=== PATIENT | female | born 1970 | race Caucasian/White ===

== ENCOUNTER 2021-12-12 14:22 | Emergency (ER) | payer MEDICARE, MEDICAID ==
[~2021-12-12] VITALS: Ht 154.9 cm; Wt 72.2 kg
[~2021-12-12 14:22] MED LIST: ASPI-1071 PO; GABA-530 PO; IBUP-1984 PO; LORA0.5T PO; SERT50TA PO; SIMV10TA98 PO; TOPI25TA15 PO; TRAZ-251 PO
[2021-12-12 14:39] VITALS: BP 125/74
[2021-12-12] MEDS ORDERED: ondansetron 4mg rapidly disintigrating tab PO ONE (15:00)
[2021-12-12] MEDS ORDERED: HYDROcodone/acetaminophen 5mg/325mg tablet PO ONE (15:00)
[2021-12-12] MEDS ORDERED: LORazepam 1 MG tablet PO ONE (15:00)
[2021-12-12] MEDS ORDERED: HYDR-3965 PO (16:04)
[2021-12-12] MEDS ORDERED: ONDA4TAB12 PO (16:04)
== END 2021-12-12 16:33 | disposition home or self-care (01) ==
LOC: ER 14:22
DX: M25.571 Pain in right ankle and joints of right foot (principal); I11.0 Hypertensive heart disease with heart failure; I50.9 Heart failure, unspecified; G89.29 Other chronic pain; F41.9 Anxiety disorder, unspecified; F31.9 Bipolar disorder, unspecified; F19.90 Other psychoactive substance use, unspecified, uncomplicated; Z72.89 Other problems related to lifestyle; Z88.1 Allergy status to other antibiotic agents; Z88.8 Allergy status to other drugs, medicaments and biological substances; Z79.82 Long term (current) use of aspirin; Z79.899 Other long term (current) drug therapy
CPT/HCPCS: 73564; 73610; 99284

== ENCOUNTER 2023-02-05 10:19 | Emergency (ER) | payer MEDICARE, MEDICAID ==
[~2023-02-05] VITALS: Ht 154.9 cm; Wt 61.8 kg
[~2023-02-05 10:19] MED LIST changes: +ONDA4TAB12 PO
[2023-02-05 10:40] LABS: BASOPHILS % (AUTO) 0.5 % (0-1); EOSINOPHILS # (AUTO) 0.1 X10'3 (0-0.9); EOSINOPHILS % (AUTO) 1.5 % (0-6); HEMATOCRIT 34.5 % (35.0-45.0); HEMOGLOBIN 11.1 g/dl (12.0-16.0); LYMPHOCYTES # (AUTO) 0.9 X10'3 (1.1-4.8); LYMPHOCYTES % (AUTO) 13.1 % (21-51); MEAN CORPUSCULAR HEMOGLOBIN 31.8 PG (27.0-31.0); MEAN CORPUSCULAR HGB CONC 32.2 g/dL (33.0-36.5); MEAN CORPUSCULAR VOLUME 98.8 FL (78-98); MEAN PLATELET VOLUME 9.3 FL (7.4-10.4); MONOCYTES # (AUTO) 0.6 X10'3 (0-0.9); MONOCYTES % (AUTO) 7.8 % (2-12); NEUTROPHILS # (AUTO) 5.5 X10'3 (1.8-7.7); NEUTROPHILS % (AUTO) 77.1 % (42-75); PLATELET COUNT 224 X10'3 (140-440); RED BLOOD COUNT 3.49 X10'6 (4.20-5.60); RED CELL DISTRIBUTION WIDTH 15.7 % (11.5-14.5); WHITE BLOOD COUNT 7.1 X10'3 (4.5-11.0)
[2023-02-05 10:51] VITALS: BP 93/61; PULSE 100; RESP 18; TEMP 98.4; O2SAT 97
[2023-02-05 10:57] LABS: ALANINE AMINOTRANSFERASE 48 U/L (12-78); ALBUMIN 2.8 G/DL (3.4-5.0); ALKALINE PHOSPHATASE 94 IU/L (46-116); ANION GAP 10 (8-16); ASPARTATE AMINO TRANSFERASE 32 U/L (10-37); BILIRUBIN,TOTAL 0.2 MG/DL (0.1-1.0); BLOOD UREA NITROGEN 22 MG/DL (7-18); BUN/CREATININE RATIO 28.9 (10.0-20.0); CALCIUM 8.6 MG/DL (8.5-10.1); CHLORIDE 104 MMOL/L (99-107); CREATININE 0.76 MG/DL (0.40-0.90); GLUCOSE 95 MG/DL (70-104); POTASSIUM 3.3 MMOL/L (3.5-5.1); SODIUM 139 MMOL/L (135-145); TOTAL CARBON DIOXIDE 24.6 MMOL/L (24-32); TOTAL PROTEIN 5.5 G/DL (6.4-8.2); eGFR 79 ML/MIN
[2023-02-05] MEDS ORDERED: POTASSIUM BICARB 20meq eff tab 20 MEQ TABLET.EFF PO STA (12:57)
[2023-02-05] MEDS ORDERED: furosemide 20 MG/2 ML vial IV ONE (13:00)
[2023-02-05] MEDS ORDERED: HYDROcodone/acetaminophen 10/325mg tab PO ONE (13:00)
[2023-02-05 13:22] LABS: MAGNESIUM 1.9 MG/DL (1.5-2.4)
== END 2023-02-05 15:13 | disposition left against medical advice (07) ==
LOC: ER 10:20
DX: J44.9 Chronic obstructive pulmonary disease, unspecified (principal); R60.9 Edema, unspecified; I50.33 Acute on chronic diastolic (congestive) heart failure; E78.00 Pure hypercholesterolemia, unspecified; I11.0 Hypertensive heart disease with heart failure; G89.29 Other chronic pain; M79.7 Fibromyalgia; F17.210 Nicotine dependence, cigarettes, uncomplicated; Z88.8 Allergy status to other drugs, medicaments and biological substances; Z88.1 Allergy status to other antibiotic agents; Z79.82 Long term (current) use of aspirin; Z79.899 Other long term (current) drug therapy
CPT/HCPCS: 36415; 71045; 80053; 83735; 83880; 84484; 85025; 93005; 99285

== ENCOUNTER 2023-03-23 00:13 | Inpatient (IN) | payer MEDICARE, MEDICAID ==
[~2023-03-23] VITALS: Ht 154.9 cm; Wt 88.2 kg
[~2023-03-23 00:13] MED LIST changes: -ASPI-1071 PO; +ASPI81TA52 PO; +CARI1.5C PO; +CHLO10TA18 PO; +CYCL-1 PO; +DICL100G59 TOP; +ERGO500093 PO; +FURO40TA4 PO; -GABA-530 PO; +GABA600T13 PO; -IBUP-1984 PO; +LISI5TAB22 PO; -LORA0.5T PO; +NAPR-996 PO; -ONDA4TAB12 PO; +SERT-433 PO; -SERT50TA PO; -SIMV10TA98 PO; +TOP100T PO; -TOPI25TA15 PO; -TRAZ-251 PO
[2023-03-23] MEDS ORDERED: furosemide 40mg/4ml inj IV ONE ×2 (01:20→19:45)
[2023-03-23] MEDS ORDERED: ondansetron/PF 4mg/2ml inj IV ONE (01:25)
[2023-03-23] MEDS ORDERED: morphine 4 MG/ML inj SYRINge IV ONE (01:25)
[2023-03-23 02:02] LABS: BASOPHILS # (AUTO) 0.1 X10'3 (0-0.2); BASOPHILS % (AUTO) 0.8 % (0-1); EOSINOPHILS # (AUTO) 0.2 X10'3 (0-0.9); EOSINOPHILS % (AUTO) 2.5 % (0-6); HEMATOCRIT 32.9 % (35.0-45.0); HEMOGLOBIN 10.6 g/dl (12.0-16.0); LYMPHOCYTES # (AUTO) 1.2 X10'3 (1.1-4.8); LYMPHOCYTES % (AUTO) 15.7 % (21-51); MEAN CORPUSCULAR HEMOGLOBIN 30.3 PG (27.0-31.0); MEAN CORPUSCULAR HGB CONC 32.2 g/dL (33.0-36.5); MEAN CORPUSCULAR VOLUME 93.9 FL (78-98); MEAN PLATELET VOLUME 8.1 FL (7.4-10.4); MONOCYTES # (AUTO) 1.1 X10'3 (0-0.9); MONOCYTES % (AUTO) 14.1 % (2-12); NEUTROPHILS # (AUTO) 5.2 X10'3 (1.8-7.7); NEUTROPHILS % (AUTO) 66.9 % (42-75); PLATELET COUNT 323 X10'3 (140-440); RED CELL DISTRIBUTION WIDTH 17.5 % (11.5-14.5); WHITE BLOOD COUNT 7.8 X10'3 (4.5-11.0)
[2023-03-23 02:18] LABS: ALANINE AMINOTRANSFERASE 140 U/L (12-78); ALBUMIN 3.1 G/DL (3.4-5.0); ALKALINE PHOSPHATASE 126 IU/L (46-116); ANION GAP 7 (8-16); ASPARTATE AMINO TRANSFERASE 84 U/L (10-37); BILIRUBIN,TOTAL 0.5 MG/DL (0.1-1.0); BLOOD UREA NITROGEN 25 MG/DL (7-18); BUN/CREATININE RATIO 26.6 (10.0-20.0); CALCIUM 8.8 MG/DL (8.5-10.1); CHLORIDE 101 MMOL/L (99-107); CREATININE 0.94 MG/DL (0.40-0.90); GLUCOSE 95 MG/DL (70-104); POTASSIUM 4.5 MMOL/L (3.5-5.1); SODIUM 133 MMOL/L (135-145); TOTAL CARBON DIOXIDE 24.7 MMOL/L (24-32); TOTAL PROTEIN 6.2 G/DL (6.4-8.2); eCRCL 51 ML/MIN; eGFR 62 ML/MIN
[2023-03-23 02:27] LABS: PRO BRAIN NATRIURETIC PEPTIDE 5317 PG/ML (0-125)
[2023-03-23] MEDS ORDERED: iohexol 350MG/ML 100ml bottle IV ONE (03:16)
[2023-03-23] MEDS ORDERED: normal saline 1000ml 1,000 ML IV ONE (04:35)
[2023-03-23] MEDS ORDERED: ondansetron 4mg rapidly disintigrating tab PO PRN (05:05)
[2023-03-23] MEDS ORDERED: bisacodyl 10mg suppository rectal RC PRN (05:05)
[2023-03-23] MEDS ORDERED: acetaminophen 325mg tablet PO PRN ×2 (05:05)
[2023-03-23] MEDS ORDERED: morphine 2 MG/ML inj. syringe IV PRN (05:05)
[2023-03-23] MEDS ORDERED: ondansetron/PF 4mg/2ml inj IV PRN (05:05)
[2023-03-23] MEDS ORDERED: magnesium hydroxide 30ml (MOM) UD suspension PO PRN (05:05)
[2023-03-23] MEDS ORDERED: mag hydrox/Alum hydrox/simeth 30ml oral suspension PO PRN (05:05)
[2023-03-23] MEDS ORDERED: diphenhydrAMINE 50 mg/ml inj IV PRN (05:05)
[2023-03-23] MEDS ORDERED: acetaminophen 650mg rectal suppository RC PRN (05:05)
[2023-03-23] MEDS ORDERED: diphenhydrAMINE 25mg capsule PO PRN (05:05)
[2023-03-23] MEDS ORDERED: pantoprazole 40mg Tablet.DR PO SCH (07:30)
[2023-03-23] MEDS ORDERED: furosemide 10 MG/1 ML 10ml inj IV SCH (08:00)
--- NOTE | 2023-03-23 08:05 | NUR ---
Pt has a BP of 99/62. Lasix 40 mg is due at 0800. Order states to hold if SBP is <100. 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
--- NOTE | 2023-03-23 08:16 | NUR ---
Been on hold waiting for [employer] to take report to transfer to the floor.
[2023-03-23] MEDS: nicotine 21mg patch - 24 hr TD SCH (08:30)
[2023-03-23] MEDS: docusate sod 100mg capsule PO SCH ×2 (08:30→20:00)
[2023-03-23] MEDS: pantoprazole 40mg Tablet.DR PO SCH (08:31)
[2023-03-23] MEDS: heparin, porcine 5000 units/ml vial SQ SCH ×2 (08:32→20:42)
[2023-03-23 08:46] LABS: MAGNESIUM 2.3 MG/DL (1.5-2.4); PHOSPHORUS 4.9 MG/DL (2.3-4.5)
[2023-03-23 09:13] LABS: APTT 32 SECONDS (22-32); D-DIMER 1.84 MG/L FEU (0-0.50); INR 1.1 INR; PROTHROMBIN TIME 11.8 SECONDS (9.0-12.0)
[2023-03-23 10:41] VITALS: RESP 20; O2SAT 96
[2023-03-23 11:00] VITALS: BP 85/65; PULSE 85; RESP 20; TEMP 98.4; O2SAT 99
[2023-03-23 15:00] VITALS: BP 110/65; PULSE 102; RESP 23; TEMP 97.6; O2SAT 99
--- NOTE | 2023-03-23 15:32 | NUR ---
BLADDER SCANNED PT PER PT REQUEST. 115MLS WAS THE HIGHEST NUMBER SCANNED. ASKED ABOUT LAST VOID, PT REPORTED IT HAD BEEN "HOURS". PT ASKED TO CONTACT THIS NURSE AFTER NEXT VOID FOR MORE ACCURATE RESULTS.
[2023-03-23] MEDS: HYDROcodone/acetaminophen 5mg/325mg tablet PO PRN ×2 (16:20→22:48)
--- NOTE | 2023-03-23 18:23 | NUR ---
Patient in room PCU 3028. I have received report from SAMARA BLANCO, and had the opportunity to ask questions and assume patient care.
--- NOTE | 2023-03-23 18:30 | NUR ---
Patient in room PCU 3028. I have received report from SCOTT and had the opportunity to ask questions and assume patient care.
[2023-03-23 19:00] VITALS: BP 98/56; PULSE 95; RESP 16; TEMP 98.4; O2SAT 97
--- NOTE | 2023-03-23 19:15 | NUR ---
PT HAS PROLAPSED RECTUM THAT WILL COME OUT WHEN SHE VOIDS. IT REDUCES ITSELF WHEN SHE SITS DOWN. PT REFUSING TO HAVE NURSING ASSESS PROLAPSED RECTUM
[2023-03-23] MEDS ORDERED: albumin (Human) 5% 250ml 250 ML IV ONE (19:45)
--- NOTE | 2023-03-23 19:45 | NUR ---
DR CHANDLER NOTIFIED: PT DID NOT RECEIVE ANY LASIX TODAY DUE TO DECREASED BP. PT ADMITTED FOR CHF, BP 98/56. ORDERS OBTAINED TO GIVE ALBUMIN X 1 AND IF BP GREATER THAN 100/50, OK TO GIVE LASIX X 1 TONIGHT.
[2023-03-23 20:02] LABS: URINE AMPHETAMINE SCREEN NEGATIVE (Neg); URINE BARBITUATE SCREEN NEGATIVE (Neg); URINE BENZODIAZEPINES SCREEN NEGATIVE (Neg); URINE CANNABINOID SCREEN POSITIVE (Neg); URINE COCAINE SCREEN NEGATIVE (Neg); URINE METHADONE SCREEN NEGATIVE (Neg); URINE OPIATE SCREEN POSITIVE (Neg); URINE PHENCYCLIDINE SCREEN NEGATIVE (Neg)
[2023-03-23] MEDS ORDERED: ACYC-129 PO (20:40)
[2023-03-23] MEDS ORDERED: cyclobenzaprine 10mg tablet PO PRN (20:55)
[2023-03-23 20:59] VITALS: BP 112/76
[2023-03-23] MEDS ORDERED: temazepam 15mg capsule PO PRN (21:00)
[2023-03-23] MEDS ORDERED: CHLORPROMAZINE 10 MG PO PRN (21:21)
[2023-03-23] MEDS: gabapentin 300mg capsule PO SCH (22:42)
[2023-03-23] MEDS ORDERED: CARIPRAZINE 1.5 MG CAPSULE PO SCH (22:54)
--- NOTE | 2023-03-23 23:00 | NUR ---
FOUND PT NAKED AND CRYING IN THE BATHROOM . C/O PAIN IN RECTUM AND INABILITY TO VOID. PT ASSISTED BACK INTO BED, BLADDER SCAN REVEALED GREATER THAN 550 ML IN HER BLADDER. DR CHANDLER NOTIFIED OF ABOVE, ORDERS OBTAINED TO PLACE FC.
[2023-03-24 00:30] VITALS: BP 97/59; PULSE 71; RESP 18; TEMP 98.6; O2SAT 91
--- NOTE | 2023-03-24 06:24 | NUR ---
Problems reprioritized. Patient report given, questions answered & plan of care reviewed with SARAH.
--- NOTE | 2023-03-24 06:30 | NUR ---
Patient in room PCU 3028. I have received report from Rita PASCUAL and had the opportunity to ask questions and assume patient care.
[2023-03-24 07:00] VITALS: BP 86/58; PULSE 87; RESP 14; TEMP 97.6; O2SAT 97
[2023-03-24 07:03] LABS: BASOPHILS % (AUTO) 0.7 % (0-1); EOSINOPHILS # (AUTO) 0.3 X10'3 (0-0.9); EOSINOPHILS % (AUTO) 5.1 % (0-6); HEMATOCRIT 28.9 % (35.0-45.0); HEMOGLOBIN 9.2 g/dl (12.0-16.0); LYMPHOCYTES % (AUTO) 15.7 % (21-51); MEAN CORPUSCULAR HEMOGLOBIN 29.9 PG (27.0-31.0); MEAN CORPUSCULAR HGB CONC 31.9 g/dL (33.0-36.5); MEAN CORPUSCULAR VOLUME 93.8 FL (78-98); MONOCYTES # (AUTO) 0.6 X10'3 (0-0.9); MONOCYTES % (AUTO) 9.4 % (2-12); NEUTROPHILS # (AUTO) 4.5 X10'3 (1.8-7.7); NEUTROPHILS % (AUTO) 69.1 % (42-75); PLATELET COUNT 250 X10'3 (140-440); RED BLOOD COUNT 3.08 X10'6 (4.20-5.60); RED CELL DISTRIBUTION WIDTH 17.6 % (11.5-14.5); WHITE BLOOD COUNT 6.6 X10'3 (4.5-11.0)
[2023-03-24 07:33] LABS: ALANINE AMINOTRANSFERASE 96 U/L (12-78); ALBUMIN 2.7 G/DL (3.4-5.0); ALKALINE PHOSPHATASE 91 IU/L (46-116); ANION GAP 9 (8-16); ASPARTATE AMINO TRANSFERASE 57 U/L (10-37); BILIRUBIN,TOTAL 0.5 MG/DL (0.1-1.0); BLOOD UREA NITROGEN 20 MG/DL (7-18); CALCIUM 8.3 MG/DL (8.5-10.1); CHLORIDE 104 MMOL/L (99-107); CREATININE 0.87 MG/DL (0.40-0.90); GLUCOSE 105 MG/DL (70-104); POTASSIUM 3.5 MMOL/L (3.5-5.1); PRO BRAIN NATRIURETIC PEPTIDE 3830 PG/ML (0-125); SODIUM 137 MMOL/L (135-145); TOTAL CARBON DIOXIDE 24.3 MMOL/L (24-32); TOTAL PROTEIN 5.4 G/DL (6.4-8.2); eCRCL 55 ML/MIN; eGFR 68 ML/MIN
[2023-03-24] MEDS ORDERED: furosemide 40mg/4ml inj IV SCH (08:00)
[2023-03-24] MEDS ORDERED: aspirin 81mg, enteric-coated 1 TAB TABLET.DR PO SCH (08:00)
[2023-03-24] MEDS ORDERED: topiramate 100mg tablet PO SCH (08:00)
[2023-03-24] MEDS ORDERED: sertraline 50mg tablet PO SCH (08:00)
[2023-03-24] MEDS ORDERED: furosemide 10 MG/1 ML 10ml inj IV SCH (08:00)
[2023-03-24] MEDS: docusate sod 100mg capsule PO SCH (08:10)
[2023-03-24] MEDS: gabapentin 300mg capsule PO SCH ×2 (08:10→14:05)
[2023-03-24] MEDS: pantoprazole 40mg Tablet.DR PO SCH (08:10)
[2023-03-24] MEDS: nicotine 21mg patch - 24 hr TD SCH (08:11)
[2023-03-24] MEDS: heparin, porcine 5000 units/ml vial SQ SCH (08:11)
[2023-03-24] MEDS ORDERED: NICO-687 TD (12:10)
[2023-03-24 12:20] VITALS: BP 87/60; PULSE 96; RESP 17; TEMP 97.5; O2SAT 98
--- NOTE | 2023-03-24 14:22 | NUR ---
AGREE WITH [employer] HELPER AM ASSESSMENT
[2023-03-24 15:08] VITALS: RESP 19
[2023-03-24] MEDS: HYDROcodone/acetaminophen 5mg/325mg tablet PO PRN (15:08)
== END 2023-03-24 16:42 | disposition home or self-care (01) | DRG 291 ==
LOC: ER 00:14 → ED HOLD 05:05 → PCU 3S 08:51
PROVIDERS: ADMIT Family Medicine; ATTEND Internal Medicine
PROC: B32T1ZZ Computerized Tomography (CT Scan) of Left Pulmonary Artery using Low Osmolar Contrast (ICD-10-PCS; principal; 2023-03-23)
PROC: B3201ZZ Computerized Tomography (CT Scan) of Thoracic Aorta using Low Osmolar Contrast (ICD-10-PCS; 2023-03-23)
PROC: B32S1ZZ Computerized Tomography (CT Scan) of Right Pulmonary Artery using Low Osmolar Contrast (ICD-10-PCS; 2023-03-23)
DX: I13.0 Hypertensive heart and chronic kidney disease with heart failure and stage 1 through stage 4 chronic kidney disease, or unspecified chronic kidney disease (principal); I50.23 Acute on chronic systolic (congestive) heart failure; N17.9 Acute kidney failure, unspecified; K76.1 Chronic passive congestion of liver; N18.9 Chronic kidney disease, unspecified; E78.00 Pure hypercholesterolemia, unspecified; F31.9 Bipolar disorder, unspecified; F41.9 Anxiety disorder, unspecified; G89.4 Chronic pain syndrome; E88.09 Other disorders of plasma-protein metabolism, not elsewhere classified; I27.20 Pulmonary hypertension, unspecified; I42.7 Cardiomyopathy due to drug and external agent; I07.1 Rheumatic tricuspid insufficiency; F10.20 Alcohol dependence, uncomplicated; M79.7 Fibromyalgia; N81.9 Female genital prolapse, unspecified; I95.9 Hypotension, unspecified; Z72.0 Tobacco use; Z82.49 Family history of ischemic heart disease and other diseases of the circulatory system; Z88.8 Allergy status to other drugs, medicaments and biological substances; Z88.1 Allergy status to other antibiotic agents; Z82.0 Family history of epilepsy and other diseases of the nervous system; Z81.8 Family history of other mental and behavioral disorders; Z80.8 Family history of malignant neoplasm of other organs or systems; Z83.79 Family history of other diseases of the digestive system; Z83.42 Family history of familial hypercholesterolemia; Z79.899 Other long term (current) drug therapy; Z79.82 Long term (current) use of aspirin
CPT/HCPCS: 36415; 71045; 71275; 80053; 80305; 83735; 83880; 84100; 84484; 85025; 85379; 85610; 85730; 87081; 99285; A4314; G0378; J1644; J1940; J2270; J2405; J3490; J7030; P9045; Q9967